=== PATIENT | male | born 1995 ===

== ENCOUNTER 2018-06-05 13:50 | Emergency (ER) | payer BC ==
[2018-06-05 14:01] VITALS: RESP 16
[2018-06-05 14:36] LABS: BASO % 0.9 % (0.0-2.0); EOS # 0.1 K/uL (0.0-0.7); EOS % 1.4 % (0.0-4.0); HEMOGLOBIN 14.5 g/dL (12.0-18.0); LYMPH # 1.6 K/uL (1.0-4.3); LYMPH % 29.8 % (20.0-40.0); MEAN CELL VOLUME 85.8 fl (80.0-94.0); MEAN CORPUSCULAR HEMOGLOBIN 29.2 pg (27.0-31.0); MEAN CORPUSCULAR HGB CONC 34.1 g/dL (33.0-37.0); MEAN PLATELET VOLUME 8.1 fl (7.2-11.7); MONO # 0.4 K/uL (0.0-0.8); MONO % 8.5 % (0.0-10.0); NEUT # 3.1 K/uL (1.8-7.0); NEUT % 59.4 % (50.0-75.0); NRBC % 0.2 % (0.0-0.0); RBC 4.96 Mil/uL (4.40-5.90); RED CELL DISTRIBUTION WIDTH 13.2 % (11.5-14.5); WHITE BLOOD COUNT 5.2 K/uL (4.8-10.8)
[2018-06-05 14:45] LABS: BLOOD UREA NITROGEN 11 mg/dl (9-20); GFR NON-AFRICAN AMERICAN > 60
--- NOTE | 2018-06-05 15:32 | ED PDOC ---
HPI: Chest Pain Time Seen by Provider: 06/05/18 14:09 Chief Complaint (Nursing): Chest Pain Chief Complaint (Provider): Chest Pain History Per: Patient History/Exam Limitations: no limitations Onset/Duration Of Symptoms: Intermittent Episodes (x2 days) Current Symptoms Are (Timing): Still Present Additional Complaint(s): 22 year old male with no significant pmHx, presents to ED with a complaint of self-limited chest pain that radiates to right arm for 2 days. Patient states first episode lasted a few minutes at home last night then occurred again for a few minutes while he was at work today. He reports that the chest pain may be triggered with deep inspiration and cough. Otherwise, he does not offer further medical complaints. PCP: Dr. Breana Cadet Past Medical History Reviewed: Historical Data, Nursing Documentation, Vital Signs Vital Signs: Last Vital Signs Temp 97.9 F 06/05/18 13:59 Pulse 57 L 06/05/18 13:59 Resp 16 06/05/18 13:59 BP 134/78 06/05/18 13:59 Pulse Ox 98 06/05/18 13:59 - Medical History PMH: No Chronic Diseases - Surgical History Surgical History: No Surg Hx - Family History Family History: States: Unknown Family Hx - Social History Current smoker - smoking cessation education provided: No Alcohol: None Drugs: Cannabis - Allergies Allergies/Adverse Reactions: Allergies Allergy/AdvReac Type Severity Reaction Status Date / Time No Known Allergies Allergy Verified 06/05/18 13:58 Review of Systems ROS Statement: Except As Marked, All Systems Reviewed And Found Negative Respiratory: Positive for: Cough Musculoskeletal: Positive for: Arm Pain (right-sided) Physical Exam - Reviewed Nursing Documentation Reviewed: Yes Vital Signs Reviewed: Yes - Physical Exam Appears: Positive for: Well, Non-toxic, No Acute Distress Head Exam: Positive for: ATRAUMATIC, NORMAL INSPECTION, NORMOCEPHALIC Skin: Positive for: Normal Color Eye Exam: Positive for: Normal appearance, EOMI, PERRL ENT: Positive for: Normal ENT Inspection Neck: Positive for: Normal Cardiovascular/Chest: Positive for: Regular Rate, Rhythm, Chest Non Tender. Negative for: Murmur Respiratory: Positive for: Normal Breath Sounds. Negative for: Wheezing, Respiratory Distress Gastrointestinal/Abdominal: Positive for: Normal Exam, Soft. Negative for: Tenderness Back: Positive for: Normal Inspection Extremity: Positive for: Normal ROM (upper/lower). Negative for: Pedal Edema, Calf Tenderness Neurologic/Psych: Positive for: Alert, Oriented (x3). Negative for: Mot or/Sensory Deficits - Laboratory Results Result Diagrams: 06/05/18 14:20 06/05/18 14:20 Lab Results: Troponin I < 0.0120 ng/mL (0.00-0.120) 06/05/18 14:20 - ECG O2 Sat by Pulse Oximetry: 98 (RA) Pulse Ox Interpretation: Normal Medical Decision Making Medical Decision Making: Time: 1411 Initial Plan: work up for chest pain. most likely, not cardiac in origin. * EKG * Labs with Troponin * CXR * Motrin 600mg PO * Reassessment Time: --Labs reviewed: no significant clinical abnormality. --CXR: 1603 --Troponin normal --Pain resolved, patient is stable for discharge. Return parameters discussed Scribe Attestation: Documented by Cassia Cooper, acting as a scribe for Gabriela Conroy MD. Provider Scribe Attestation: All medical record entries made by the Scribe were at my direction and personally dictated by me. I have reviewed the chart and agree that the record accurately reflects my personal performance of the history, physical exam, medical decision making, and the department course for this patient. I have also personally directed, reviewed, and agree with the discharge instructions and disposition. Disposition - Clinical Impression Clinical Impression: Acute chest pain, Atypical chest pain - Patient ED Disposition Is Patient to be Admitted: No - Disposition Disposition: Routine/Home Disposition Time: 16:03 Condition: IMPROVED Additional Instructions: Follow up with primary medical doctor. Return to the emergency department if symptoms worsen or if new symptoms develop. Take Tylenol or Motrin as needed for pain. Instructions: Chest Pain That Is Not Caused by the Heart (DC) Forms: [facility] (Arabic) Print Language: AMHARIC
[2018-06-05 16:16] VITALS: BP 126/57; PULSE 59; TEMP 97.6; O2SAT 100
--- NOTE | 2018-06-06 08:57 | RAD ---
Date of service: 06/05/2018 HISTORY: cough COMPARISON: No prior. TECHNIQUE: Chest PA and lateral FINDINGS: LUNGS: No active pulmonary disease. PLEURA: No significant pleural effusion identified. No pneumothorax apparent. CARDIOVASCULAR: No aortic atherosclerotic calcification present. Normal cardiac size. No pulmonary vascular congestion. OSSEOUS STRUCTURES: No significant abnormalities. VISUALIZED UPPER ABDOMEN: Normal. OTHER FINDINGS: None. IMPRESSION: No active disease.
--- NOTE | 2018-06-06 15:33 | CARD ---
APPROVED REPORT Date of service: 06/05/2018 EKG Measurement Heart [id number] <Conclusion> Sinus bradycardia Otherwise normal ECG
== END 2018-06-05 16:15 | disposition home or self-care (01) ==
LOC: H.ER 13:50
DX: R07.89 Other chest pain (principal)